=== PATIENT | female | born 1960 | race Two or more races ===

== ENCOUNTER 2024-09-18 14:20 | Emergency (ER) | payer BC, MEDICAID, MEDICARE, OTHER ==
[~2024-09-18] VITALS: Ht 170.2 cm; Wt 86.2 kg
[2024-09-18 14:53] LABS: BASOPHILS # (AUTO) 0.1 K/UL (0.0-0.2); BASOPHILS % (AUTO) 0.9 % (0.0-2.0); EOSINOPHILS # (AUTO) 0.2 K/uL (0.0-0.7); EOSINOPHILS % (AUTO) 2.3 % (0.0-7.0); HEMATOCRIT 23.5 % (31.2-41.9); HEMOGLOBIN 7.8 g/dL (10.9-14.3); LYMPHOCYTES # (AUTO) 0.7 K/uL (0.8-4.8); LYMPHOCYTES % (AUTO) 10.6 % (20.5-51.5); MEAN CORPUSCULAR HEMOGLOBIN 27.9 uug (24.7-32.8); MEAN CORPUSCULAR HGB CONC 33 g/dL (32.3-35.6); MEAN CORPUSCULAR VOLUME 84.5 fL (75.5-95.3); MONOCYTES # (AUTO) 0.4 K/uL (0.1-1.30); MONOCYTES % (AUTO) 5.2 % (0.0-11.0); NEUTROPHILS # (AUTO) 5.7 K/uL (1.8-8.9); PLATELET COUNT (AUTO) 239 K/uL (179-408); RED BLOOD CELL COUNT(AUTO) 2.78 MIL/uL (3.63-4.92); RED CELL DISTRIBUTION WIDTH 18.1 % (12.3-17.7)
[2024-09-18 14:57] LABS: DIFFERENTIAL COMMENT 1
[2024-09-18 14:59] LABS: CALCIUM 6.7 mg/dL (8.5-10.1); CARBON DIOXIDE 24 mmol/L (21-32); CHLORIDE 108 mmol/L (98-107); CREATININE 0.6 mg/dL (0.6-1.3); GLUCOSE 118 mg/dL (74-106); POTASSIUM 3.5 mmol/L (3.5-5.1); SODIUM SERUM 140 mmol/L (136-145); UREA NITROGEN, BLOOD 18 mg/dL (7-18)
[2024-09-18 15:05] LABS: ALANINE AMINOTRANSFERASE 7 U/L (14-59); ALKALINE PHOSPHATASE 167 U/L (50-136); ASPARTATE AMINOTRANSFERASE 34 U/L (15-37); BILIRUBIN,DIRECT 0.1 mg/dL (0.0-0.2); BILIRUBIN,TOTAL 0.1 mg/dL (0.2-1.0); TOTAL PROTEIN, SERUM 4.5 g/dL (6.4-8.2)
[2024-09-18 15:07] LABS: ALBUMIN < 0.6 g/dL (3.4-5.0)
[2024-09-18 15:13] LABS: *BILIRUBIN,URIN NEGATIVE (NEGATIVE); *BLOOD, URINE 3+ (NEGATIVE); *CLARITY,URINE CLEAR (CLEAR); *COLOR,URINE YELLOW (YELLOW); *KETONES,URINE TRACE (NEGATIVE); *PROTEIN,URINE 3+ (NEGATIVE); *UROBILINOGEN,URINE 0.2 E.U./dl (NORMAL); LEUKOCYTE ESTERASE ,URINE NEGATIVE (NEGATIVE); NITRITE, URINE NEGATIVE (NEGATIVE); UGLUCOSE NEGATIVE (NEGATIVE)
[2024-09-18 15:26] LABS: WBC,URINE 0-3 /HPF (0-3)
[2024-09-18 15:27] LABS: BACTERIA,URINE FEW /HPF (NONE SEEN); SQUAMOUS EPITHELIAL CELL,UR FEW /HPF (NONE SEEN)
[2024-09-18] MEDS ORDERED: CALC500T88 PO (15:37)
[2024-09-18] MEDS ORDERED: INSU100V39 SQ (15:37)
[2024-09-18] MEDS ORDERED: MELA3CAP2 PO (15:37)
[2024-09-18] MEDS ORDERED: ASCO500C18 PO (15:37)
[2024-09-18] MEDS ORDERED: ACET-3117 PO (15:37)
[2024-09-18] MEDS ORDERED: ACET-2030 PO (15:37)
[2024-09-18] MEDS ORDERED: MAGN400O6 PO (15:37)
[2024-09-18] MEDS ORDERED: ZINC56.713 TP (15:37)
[2024-09-18] MEDS ORDERED: FAMO20TA8 PO (15:37)
[2024-09-18] MEDS ORDERED: SACC250C9 PO (15:37)
[2024-09-18] MEDS ORDERED: ZOLP5TAB8 PO (15:37)
[2024-09-18] MEDS ORDERED: THERAHONEY TOP (15:37)
[2024-09-18] MEDS ORDERED: MULT-213 PO (15:37)
[2024-09-18] MEDS ORDERED: SENN8.6T19 PO (15:37)
[2024-09-18] MEDS ORDERED: ferrous sulfate PO (15:37)
[2024-09-18] MEDS ORDERED: POLY250017 PO (15:37)
[2024-09-18] MEDS ORDERED: CYCL5TAB PO (15:37)
[2024-09-18] MEDS ORDERED: BISA10SU95 RC (15:37)
[2024-09-18] MEDS ORDERED: LINE600T15 PO (15:37)
[2024-09-18] MEDS ORDERED: MIDO5TAB5 PO (15:37)
[2024-09-18] MEDS ORDERED: PRAV40TA3 PO (15:37)
[2024-09-18] MEDS ORDERED: MORP60TA4 PO (15:37)
[2024-09-18] MEDS ORDERED: ERGO500040 PO (15:37)
[2024-09-18] MEDS ORDERED: LUBI8CAP PO (15:37)
[2024-09-18] MEDS ORDERED: NA P133E RC (15:37)
[2024-09-18] MEDS ORDERED: ZINC220T3 PO (15:37)
[2024-09-18] MEDS ORDERED: OXYC15TA2 PO (15:37)
[2024-09-18] MEDS ORDERED: POVI37802 TP (15:37)
[2024-09-18 16:59] VITALS: BP 108/80; O2SAT 97
== END 2024-09-18 17:00 ==
LOC: ER 14:20
DX: E11.69 Type 2 diabetes mellitus with other specified complication (principal); R79.9 Abnormal finding of blood chemistry, unspecified; F11.20 Opioid dependence, uncomplicated; K21.9 Gastro-esophageal reflux disease without esophagitis; K58.9 Irritable bowel syndrome, unspecified
CPT/HCPCS: 36415; 71045; 83605; 85025; 85730; 86850; 86900; 86901; 87040; A4606; A4663

== ENCOUNTER 2024-12-25 21:17 | Inpatient (IN) | payer BC ==
[~2024-12-25] VITALS: Ht 167.6 cm; Wt 70.5 kg
[~2024-12-25 21:17] MED LIST: ACET-2030 PO; ACET-3117 PO; ASCO500C18 PO; BISA10SU95 RC; CALC500T88 PO; CYCL5TAB PO; ERGO500040 PO; FAMO20TA8 PO; INSU100V39 SQ; LINE600T15 PO; LUBI8CAP PO; MAGN400O6 PO; MELA3CAP2 PO; MIDO5TAB5 PO; MORP60TA4 PO; MULT-213 PO; NA P133E RC; OXYC15TA2 PO; POLY250017 PO; POVI37802 TP; PRAV40TA3 PO; SACC250C9 PO; SENN8.6T19 PO; THERAHONEY TOP; ZINC220T3 PO; ZINC56.713 TP; ZOLP5TAB8 PO; ferrous sulfate PO
[2024-12-25] MEDS ORDERED: INSU100C SUBCUT (21:37)
[2024-12-25] MEDS ORDERED: OLAN7.5T3 PO (21:37)
[2024-12-25] MEDS ORDERED: MORP60TA4 PO (21:37)
[2024-12-25] MEDS ORDERED: ONDANSETRON 4 MG/2 ML VIAL ONE (22:09)
[2024-12-25] MEDS ORDERED: HYDROMORPHONE 1 MG/1 ML DISP.SYRIN ONE (22:09)
[2024-12-25] MEDS: ONDANSETRON 4 MG/2 ML VIAL IV ONE (22:20)
[2024-12-25] MEDS: HYDROMORPHONE 1 MG/1 ML DISP.SYRIN IV ONE (22:20)
[2024-12-25 22:23] LABS: PLATELET COUNT (AUTO) 234 K/uL (179-408); RED BLOOD CELL COUNT(AUTO) 3.73 MIL/uL (3.63-4.92); RED CELL DISTRIBUTION WIDTH 15.5 % (12.3-17.7); WHITE BLOOD COUNT (AUTO) 6.9 K/uL (3.8-11.8)
[2024-12-25 22:28] LABS: ERYTHROCYTE SEDIMENTATION RATE 84 MM/HR (0-20)
[2024-12-25 22:29] LABS: CREATININE 0.8 mg/dL (0.6-1.3); SODIUM SERUM 143.0 mmol/L (136-145); UREA NITROGEN, BLOOD 24.0 mg/dL (7-18)
[2024-12-25 22:35] LABS: ASPARTATE AMINOTRANSFERASE 28.0 U/L (15-37); TOTAL PROTEIN, SERUM 5.6 g/dL (6.4-8.2)
[2024-12-26] MEDS ORDERED: MORPHINE SULFATE 2 MG/1 ML DISP.SYRIN ONE (04:46)
[2024-12-26] MEDS ORDERED: ONDANSETRON 4 MG/2 ML VIAL ONE (04:46)
[2024-12-26] MEDS ORDERED: VANCOMYCIN IV 200 ML ONE (04:46)
[2024-12-26] MEDS: ONDANSETRON 4 MG/2 ML VIAL IV ONE (05:00)
[2024-12-26] MEDS: VANCOMYCIN IV 1,000 MG in IV DEXTROSE 5% 250 ML IV ONE (05:00)
[2024-12-26] MEDS: MORPHINE SULFATE 2 MG/1 ML DISP.SYRIN IV ONE (05:00)
[2024-12-26] MEDS ORDERED: ONDANSETRON 4 MG/2 ML VIAL IV PRN (05:15)
[2024-12-26] MEDS ORDERED: DEXTROSE 50% 50 ML DISP.SYRIN IV PRN (05:15)
[2024-12-26 05:19] LABS: PLATELET COUNT (AUTO) 200 K/uL (179-408); RED BLOOD CELL COUNT(AUTO) 3.39 MIL/uL (3.63-4.92); RED CELL DISTRIBUTION WIDTH 15.4 % (12.3-17.7); WHITE BLOOD COUNT (AUTO) 7.2 K/uL (3.8-11.8)
[2024-12-26 05:32] LABS: CREATININE 0.7 mg/dL (0.6-1.3); SODIUM SERUM 141.0 mmol/L (136-145); UREA NITROGEN, BLOOD 23.0 mg/dL (7-18)
[2024-12-26] MEDS ORDERED: METRONIDAZOLE 500 MG/NS 100ML 500 MG in PREMIXED 1 EACH IV SCH (06:00)
[2024-12-26 06:15] VITALS: BP 135/76; TEMP 97.9; O2SAT 98
[2024-12-26] MEDS ORDERED: CEFTRIAXONE 1 G in IV DEXTROSE 5% 50 ML IV SCH (06:30)
[2024-12-26] MEDS: IV NS 1000 ML 1,000 ML IV SCH (06:48)
[2024-12-26] MEDS: MORPHINE SULFATE 2 MG/1 ML DISP.SYRIN IV PRN (06:58)
[2024-12-26] MEDS: PANTOPRAZOLE SODIUM 40 MG TABLET.DR PO SCH (07:07)
[2024-12-26] MEDS: BLOOD SUGAR DIAGNOSTIC 1 EACH STRIP VI SCH (07:10)
[2024-12-26] MEDS: METRONIDAZOLE 500 MG/NS 100ML 500 MG in PREMIXED 1 EACH IV SCH (08:05)
[2024-12-26] MEDS: CEFTRIAXONE 1 G in IV DEXTROSE 5% 50 ML IV SCH (08:22)
[2024-12-26] MEDS ORDERED: OLANZAPINE 7.5 MG PO SCH (09:00)
[2024-12-26] MEDS: OLANZAPINE 5 MG TABLET PO ONE (10:48)
[2024-12-26] MEDS: INSULIN REGULAR, HUMAN 1000 UNIT/10 ML VIAL SQ PRN (10:49)
[2024-12-26 11:35] VITALS: BP 130/71; TEMP 98.6; O2SAT 97
[2024-12-26 12:00] LABS: IRON, SERUM 43 ug/dL (50-175)
[2024-12-26] MEDS ORDERED: PIPERACILLIN SODIUM/TAZOBACTAM 3.375 G in IV DEXTROSE 5% 50 ML IV SCH (14:34)
[2024-12-26] MEDS: PIPERACILLIN SODIUM/TAZOBACTAM 3.375 G in IV DEXTROSE 5% 100 ML IV SCH (14:52)
[2024-12-26 15:38] VITALS: BP 114/72; TEMP 98.3; O2SAT 97
[2024-12-26 20:02] VITALS: BP 130/76; TEMP 97.7; O2SAT 99
[2024-12-26] MEDS: MAGNESIUM HYDROXIDE 30 ML LIQUID UDC PO PRN (20:45)
[2024-12-26] MEDS: ACETAMINOPHEN 325 MG TABLET PO PRN (20:47)
[2024-12-27 04:32] VITALS: BP 139/75; TEMP 97.8; O2SAT 99
[2024-12-27] MEDS: OLANZAPINE 5 MG TABLET PO SCH (08:11)
[2024-12-27] MEDS ORDERED: OLANZAPINE 7.5 MG PO SCH (09:00)
[2024-12-27 10:05] LABS: PLATELET COUNT (AUTO) 195 K/uL (179-408); RED BLOOD CELL COUNT(AUTO) 3.26 MIL/uL (3.63-4.92); RED CELL DISTRIBUTION WIDTH 15.6 % (12.3-17.7); WHITE BLOOD COUNT (AUTO) 5.0 K/uL (3.8-11.8)
[2024-12-27 10:17] LABS: CREATININE 0.8 mg/dL (0.6-1.3); SODIUM SERUM 141.0 mmol/L (136-145); UREA NITROGEN, BLOOD 15.0 mg/dL (7-18)
[2024-12-27 11:00] VITALS: BP 128/66; TEMP 98.4; O2SAT 94
[2024-12-27] MEDS: TRAMADOL HCL 50 MG TABLET PO PRN (13:40)
[2024-12-27 15:20] VITALS: BP 132/45; TEMP 98.4; O2SAT 91
[2024-12-27 15:24] VITALS: BP 139/75; TEMP 97.7; O2SAT 95
[2024-12-27 19:36] VITALS: TEMP 98
[2024-12-27] MEDS: ZOLPIDEM 5 MG TABLET PO PRN (21:29)
[2024-12-28 04:16] LABS: *BILIRUBIN,URIN NEGATIVE (NEGATIVE); *CLARITY,URINE CLEAR (CLEAR); *COLOR,URINE YELLOW (YELLOW); *KETONES,URINE NEGATIVE (NEGATIVE); *UROBILINOGEN,URINE 0.2 E.U./dl (NORMAL); LEUKOCYTE ESTERASE ,URINE NEGATIVE (NEGATIVE); NITRITE, URINE NEGATIVE (NEGATIVE); UGLUCOSE NEGATIVE (NEGATIVE)
[2024-12-28 04:20] LABS: *BLOOD, URINE TRACE (NEGATIVE); *PROTEIN,URINE 3+ (NEGATIVE)
[2024-12-28 04:27] LABS: SQUAMOUS EPITHELIAL CELL,UR FEW /HPF (NONE SEEN)
[2024-12-28 06:00] VITALS: BP 135/65; TEMP 97.6; O2SAT 94
[2024-12-28 07:05] LABS: PLATELET COUNT (AUTO) 189 K/uL (179-408); RED BLOOD CELL COUNT(AUTO) 3.21 MIL/uL (3.63-4.92); RED CELL DISTRIBUTION WIDTH 15.4 % (12.3-17.7); WHITE BLOOD COUNT (AUTO) 4.6 K/uL (3.8-11.8)
[2024-12-28 07:44] LABS: CREATININE 1.0 mg/dL (0.6-1.3); SODIUM SERUM 140.0 mmol/L (136-145); UREA NITROGEN, BLOOD 23.0 mg/dL (7-18)
[2024-12-28 10:50] VITALS: BP 134/77; TEMP 98.5; O2SAT 100
[2024-12-28 15:22] VITALS: BP 136/65; TEMP 98.1; O2SAT 96
[2024-12-28 19:00] VITALS: BP 148/80; TEMP 97.9; O2SAT 96
[2024-12-28] MEDS: SENNOSIDES 1 TABLET PO SCH (20:51)
[2024-12-29 06:59] VITALS: BP 141/81; TEMP 97.8; O2SAT 95
[2024-12-29 11:02] VITALS: BP 135/78; TEMP 98.1; O2SAT 99
[2024-12-29] MEDS: LACTULOSE 20 G/30 ML LIQUID UDC PO ONE (11:08)
[2024-12-29 15:29] VITALS: BP 132/60; TEMP 97.6; O2SAT 97
[2024-12-29 19:25] VITALS: BP 146/88; TEMP 97.9; O2SAT 97
[2024-12-30 05:47] VITALS: BP 143/86; TEMP 98; O2SAT 94
[2024-12-30 06:56] LABS: PLATELET COUNT (AUTO) 207 K/uL (179-408); RED BLOOD CELL COUNT(AUTO) 3.37 MIL/uL (3.63-4.92); RED CELL DISTRIBUTION WIDTH 15.3 % (12.3-17.7); WHITE BLOOD COUNT (AUTO) 6.3 K/uL (3.8-11.8)
[2024-12-30 07:02] LABS: CREATININE 0.9 mg/dL (0.6-1.3); SODIUM SERUM 141.0 mmol/L (136-145); UREA NITROGEN, BLOOD 21.0 mg/dL (7-18)
[2024-12-30] MEDS: MIRALAX 17 GM POWD.PACK PO SCH (08:41)
[2024-12-30 10:54] VITALS: BP 149/84; TEMP 98; O2SAT 98
[2024-12-30] MEDS ORDERED: SENN-175 PO (14:36)
[2024-12-30] MEDS ORDERED: TRAM50TA2 PO (14:36)
[2024-12-30] MEDS ORDERED: PANT40TA49 PO (14:36)
[2024-12-30] MEDS ORDERED: POLY17PO4 PO (14:36)
[2024-12-30 15:53] VITALS: BP 153/83; TEMP 97.9; O2SAT 96
== END 2024-12-30 18:00 | disposition home health service (06) | DRG 385 ==
LOC: ER 21:17 → MEDSURG3 12-26 05:08
PROVIDERS: ATTEND Nurse Practitioner Family
DX: K51.30 Ulcerative (chronic) rectosigmoiditis without complications (principal); L89.323 Pressure ulcer of left buttock, stage 3; E44.1 Mild protein-calorie malnutrition; G89.4 Chronic pain syndrome; E88.09 Other disorders of plasma-protein metabolism, not elsewhere classified; K21.9 Gastro-esophageal reflux disease without esophagitis; E78.5 Hyperlipidemia, unspecified; I10 Essential (primary) hypertension; E11.9 Type 2 diabetes mellitus without complications; D64.9 Anemia, unspecified; R79.89 Other specified abnormal findings of blood chemistry; K59.00 Constipation, unspecified; Z90.49 Acquired absence of other specified parts of digestive tract; Z79.4 Long term (current) use of insulin; Z79.899 Other long term (current) drug therapy
CPT/HCPCS: 36415; 71045; 71250; 83550; 83735; 84100; 85025; 85651; 87040; 87086; A4606; A4663; A6213; G0378; J0696; J1171; J1815; J2270; J2405; J2543; J3373; J3490; J7040